=== PATIENT | female | born 1990 | race Caucasian/White ===

== ENCOUNTER 2019-05-29 13:46 | Emergency (ER) | payer MEDICAID, OTHER ==
[~2019-05-29] VITALS: Ht 160 cm; Wt 68.0 kg
[~2019-05-29 13:46] MED LIST: ACET325T33 PO; AMOX500C2 PO; IBUP-1561 PO; ONDA4TAB14 PO; PRENAT PO
[2019-05-29 13:51] VITALS: BP 115/78; PULSE 104; RESP 18; Ht 160 cm; Wt 68.0 kg
--- NOTE | 2019-05-29 13:55 | EN ---
Date/Time of Note Date/Time of Note DATE: 05/29/19 TIME: 13:55 ER Progress Note 29-year-old female presents for right ankle pain status post injury. Medical screening exam initiated and lab/imaging tests ordered. Patient will be seen by another provider. HIRA PIZANO DO May 29, 2019 13:55
[2019-05-29] MEDS ORDERED: ONDANSETRON (ODT) 4 MG TAB ODT STA (14:01)
[2019-05-29] MEDS ORDERED: HYDROCODONE/APAP (5/325) TAB PO ONE (14:30)
[2019-05-29] MEDS ORDERED: NAPR-985 PO (14:56)
--- NOTE | 2019-05-29 15:28 | ERD ---
ER Documentation Chief Complaint Chief Complaint RIGHT ANKLE PAIN, SWELLING S/P FALL 10 MINUTES AGO, HIT ROCKS. CMS INTACT. HPI 29-year-old female presenting with right ankle pain after she fell and hit a rock. She states that she has pain with movement and there is pain to her heel. She has not taken any medications for her symptoms. Denies any numbness or tingling. Denies medical problems. NKDA. Surgical history denies. Social history denies ROS All systems reviewed and are negative except as per history of present illness. Medications Home Meds Active Scripts Naproxen* (Naprosyn*) 500 Mg Tablet, 500 MG PO BID PRN for PAIN AND/OR INFLAMMATION, #30 TAB Prov:DAMIEN PAGE PA-C 05/29/19 Ondansetron (Ondansetron Odt) 4 Mg Tab.rapdis, 4 MG PO Q6H PRN for NAUSEA AND/OR VOMITING, #10 TAB Prov:JUANITA YATES PA-C 08/30/16 Ibuprofen* (Motrin*) 400 Mg Tab, 400 MG PO Q6H PRN for PAIN AND OR ELEVATED TEMP, #30 TAB Prov:JUANITA YATES PA-C 08/30/16 Acetaminophen* (Tylenol*) 325 Mg Tablet, 2 TAB PO Q4 PRN for PAIN AND OR ELEVATED TEMP, #30 TAB Prov:JUANITA YATES PA-C 08/30/16 Amoxicillin* (Amoxicillin*) 500 Mg Cap, 500 MG PO BID for 10 Days, CAP Prov:JUANITA YATES PA-C 08/30/16 Reported Medications Multivit/Min/Fol Ac/Iron/Pren* ( S*) 1 Tab Tab, 1 TAB PO DAILY, TAB 03/08/15 Allergies Allergies: Coded Allergies: No Known Allergies (Verified Allergy, Mild, 05/15/12) PMhx/Soc Medical and Surgical Hx: pt denies Medical Hx, pt denies Surgical Hx History of Surgery: No Anesthesia Reaction: No Hx Neurological Disorder: Yes Hx Respiratory Disorders: No Hx Cardiac Disorders: No Hx Psychiatric Problems: No Hx Miscellaneous Medical Probl: No Hx Alcohol Use: No Hx Substance Use: No Hx Tobacco Use: No Smoking Status: Never smoker FmHx Family History: No diabetes, No coronary disease, No other Physical Exam Vitals Vital Signs Date Temp Pulse Resp B/P (MAP) Pulse Ox O2 O2 Flow FiO2 Time Delivery Rate 05/29/19 99.4 104 18 115/78 97 13:51 (90) Physical Exam GENERAL: The patient is well-appearing, well-nourished, in no acute distress CHEST: Clear to auscultation bilaterally. There are no rales, wheezes or rhonchi. HEART: Regular rate and rhythm. No murmurs, clicks, rubs or gallops. EXTREMITIES: Equal pulses bilaterally. There is no peripheral clubbing, cyanosis or edema. No focal swelling or erythema. Full range of motion. Grossly neurovascularly intact. NEUROLOGIC: Alert and oriented. Cranial nerves II through XII intact. Motor strength in all 4 extremities with 5 out of 5 strength. Sensation grossly intact. Normal speech and gait. SKIN: Swelling noted to the right lateral ankle. No pain with flexion and extension. No tenderness to palpation of the proximal fibular head. Compartments soft. Results 24 hrs Current Medications Medications Dose Sig/Tobi Start Time Status Last (Trade) Ordered Route PRN Stop Time Admin Dose Reason Admin 1 tab ONCE ONCE 05/29/19 DC 05/29/19 Acetaminophen PO 14:30 14:05 / 05/29/19 14:31 Hydrocodone Bitart ([place] (5/325)) Ondansetron 4 mg ONCE STAT 05/29/19 DC 05/29/19 HCl (Zofran ODT 14:01 14:05 Odt) 05/29/19 14:02 Procedures/MDM DIAGNOSTIC IMAGING REPORT Patient: FRANCHESCA DOOLEY : 1990 Age: 29 Sex: F MR #: [id number] DOS: 05/29/19 1354 Ordering MD: HIRA PIZANO DO Location: [facility] Room/Bed: PROCEDURE: XR Ankle. CLINICAL INDICATION: Pain TECHNIQUE: AP, oblique and lateral views of the right ankle were performed. COMPARISON: None. FINDINGS: There is normal mineralization and alignment. No fracture or osseous lesion is identified. The joints are normal. There is soft tissue swelling lateral to lateral malleolus. RPTAT: AA IMPRESSION: Soft tissue swelling lateral to the lateral malleolus with no acute fracture. DIAGNOSTIC IMAGING REPORT Patient: FRANCHESCA DOOLEY : 1990 Age: 29 Sex: F MR #: [id number] DOS: 05/29/19 1354 Ordering MD: HIRA IPZANO DO Location: [facility] Room/Bed: PROCEDURE: XR Foot. CLINICAL INDICATION: pain TECHNIQUE: AP, lateral and oblique views of the right foot was obtained. The images were reviewed on a PACS workstation. COMPARISON: None. FINDINGS: The bones of the foot appear intact, with no evidence of acute fracture, dislocation, or subluxation. The joint spaces are preserved. Bone mineralization is normal. No significant soft tissue swelling is seen. RPTAT: AA IMPRESSION: Unremarkable right foot radiographs. DIAGNOSTIC IMAGING REPORT Patient: FRANCHESCA DOOLEY : 1990 Age: 29 Sex: F MR #: [id number] DOS: 05/29/19 1354 Ordering MD: HIRA PIZANO DO Location: [facility] Room/Bed: PROCEDURE: Right tibia and fibula x-ray CLINICAL INDICATION: pain TECHNIQUE: AP, lateral views of the tibia and fibula were obtained. COMPARISON: None FINDINGS: There is normal mineralization. No acute fracture or dislocation is seen. There are no significant degenerative changes. There is soft tissue swelling in the lateral right ankle. RPTAT: AA IMPRESSION: Soft tissue swelling with no acute fracture. MDM: 29-year-old female presenting with right ankle pain. I have low suspicion for acute fracture dislocation. I have low suspicion for tendon or ligament rupture. Patient likely has bone contusion. Patient is discharged with strict ER precautions and told to follow-up with primary care within 1 to 2 days for close evaluation. Patient is told if symptoms change or worsen to return immediately to the ER. All questions answered at discharge Departure Diagnosis: Primary Impression: Ankle pain Condition: Stable Patient Instructions: Sprain, Ankle, With X-Ray Referrals: [facility] YOU HAVE RECEIVED A MEDICAL SCREENING EXAM AND THE RESULTS INDICATE THAT YOU DO NOT HAVE A CONDITION THAT REQUIRES URGENT TREATMENT IN THE EMERGENCY DEPARTMENT. FURTHER EVALUATION AND TREATMENT OF YOUR CONDITION CAN WAIT UNTIL YOU ARE SEEN IN YOUR DOCTORS OFFICE WITHIN THE NEXT 1-2 DAYS. IT IS YOUR RESPONSIBILITY TO MAKE AN APPOINTMENT FOR FOLOW-UP CARE. IF YOU HAVE A PRIMARY DOCTOR --you should call your primary doctor and schedule an appointment IF YOU DO NOT HAVE A PRIMARY DOCTOR YOU CAN CALL OUR PHYSICIAN REFERRAL HOTLINE AT IF YOU CAN NOT AFFORD TO SEE A PHYSICIAN YOU CAN CHOSE FROM THE FOLLOWING [facility] [address] [facility] [address] [facility] [address] [facility] [address] [facility] [address] [facility]. [facility]. [address] Additional Instructions: FOLLOW UP WITH YOUR PRIMARY CARE PHYSICIAN TOMORROW.Return to this facility if you are not improving as expected. DAMIEN APGE PA-C May 29, 2019 15:28
== END 2019-05-29 15:03 | disposition home or self-care (01) ==
LOC: FTE 13:46
DX: M25.571 Pain in right ankle and joints of right foot (principal)
CPT/HCPCS: 73590; 73610; 73630; Z7502; Z7610